=== PATIENT | female | born 1945 | race Caucasian/White ===

== ENCOUNTER 2016-11-19 09:52 | Day surgery (SDC) | payer MEDICARE, BC ==
[~2016-11-19 09:52] MED LIST: PROPOFOL 500 MG/50 ML EMU IV ONE
[2016-11-19 12:15] VITALS: BP 134/70; PULSE 65; RESP 18; TEMP 97.2; O2SAT 95
== END 2016-11-19 12:50 | disposition home or self-care (01) | DRG 392 ==
LOC: SURG 09:52
PROVIDERS: ATTEND Surgery
DX: R19.5 Other fecal abnormalities (principal); K63.5 Polyp of colon; K57.30 Diverticulosis of large intestine without perforation or abscess without bleeding; K62.1 Rectal polyp
CPT/HCPCS: J2001; J2704